=== PATIENT | male | born 1945 | race Two or more races ===

== ENCOUNTER 2020-05-13 13:36 | Inpatient (IN) | payer BC, OTHER ==
[~2020-05-13] VITALS: Ht 182.9 cm; Wt 86.2 kg
--- NOTE | 2020-05-13 14:00 | NUR ---
ELIZABETH [facility] TO ER BED 6. AWAKE, ALERT BUT CONSUED. TO ER BED 6. NOT IN RESP DISTRESS. PT IS A VENT AND TRACH DEPENDENT. BED BOUND. PT WAS BROUGHT IN FOR A DISLODGE GT PER REPORT FROM THE FACILITY. UPON ASSESSMENT, PTS GT WAS INPLACE, VERIFIED BY INTRODUCING AIR AND GURLING HEARD AND POSITIVE GASTRIC RESIDUAL RETURN UPON ASPIRATION. RESIDUAL WAS NOTED CLEAR, 10ML. NO NOTED BLEEDING, PERISTOME REDNESS NOR LEAK. AWAITING MD FOR EVAL.
--- NOTE | 2020-05-13 14:13 | NUR ---
RT Pt brought into ER trached on mechanical ventilation. Pt switched over to hospital vent with noted settings by transport RT. Vent is plugged into red outlet. No SOB or respiratory distress noted. Addendum: 05/13/20 at 1442 by JEANNETTE SOSA RT Amended: Links added.
[2020-05-13] MEDS ORDERED: DIATR MEGLU/DIATRIZOATE SODIUM 30 ML BOTTLE (GASTROGRAPHIN) ONE (14:16)
--- NOTE | 2020-05-13 14:28 | NUR ---
XRAY AT BEDSIDE. GASTROGRAFFIN GIVEN VIA GT PER MD ORDERED
[2020-05-13 14:57] LABS: BASOPHILS # (AUTO) 0.1 /CMM (0.0-0.2); BASOPHILS % (AUTO) 1.1 % (0.0-2.0); EOSINOPHILS % (AUTO) 4.2 % (0.0-6.0); HEMATOCRIT 30 % (39-51); LYMPHOCYTES # (AUTO) 1.8 /CMM (0.8-4.8); LYMPHOCYTES % (AUTO) 23.8 % (20.0-44.0); MEAN CORPUSCULAR HGB CONC 33 g/dl (31.0-36.0); MEAN CORPUSCULAR VOLUME 90 fL (80-96); MONOCYTES # (AUTO) 0.7 /CMM (0.1-1.30); MONOCYTES % (AUTO) 9.6 % (2.0-12.0); NEUTROPHILS # (AUTO) 4.7 /CMM (1.8-8.9); NEUTROPHILS % (AUTO) 61.3 % (43.0-81.0); PLATELET COUNT (AUTO) 276 /CMM (150-450); RED BLOOD CELL COUNT(AUTO) 3.38 MIL/uL (4.5-6.0); WHITE BLOOD COUNT (AUTO) 7.6 K/uL (4.3-11.0)
[2020-05-13 15:02] LABS: CALCIUM, SERUM 9.5 mg/dL (8.5-10.1); CREATININE 1.3 mg/dL (0.6-1.3)
[2020-05-13 15:13] LABS: POTASSIUM 2.8 mmol/L (3.5-5.1)
[2020-05-13] MEDS ORDERED: POTASSIUM CL. PREMIX PERIPHER. 200 ML ONE (16:45)
[2020-05-13] MEDS ORDERED: POTASSIUM CHLORIDE 20 MEQ POWDER PACKET ONE (16:46)
[2020-05-13] MEDS: POTASSIUM CL. PREMIX PERIPHER. 50 ML IV SCH ×4 (16:58→22:53)
[2020-05-13] MEDS ORDERED: POTASSIUM CHLORIDE 20 MEQ TAB.PRT.SR PO ONE (17:00)
[2020-05-13] MEDS ORDERED: IV NS 0.9% 1,000 ML IV ONE (17:00)
[2020-05-13] MEDS ORDERED: SIMV-46 GT (17:33)
[2020-05-13] MEDS ORDERED: INSU100V7 SQ (17:33)
[2020-05-13] MEDS ORDERED: LOSA25TA27 GT (17:33)
[2020-05-13] MEDS ORDERED: PANT40SU2 GT (17:33)
[2020-05-13] MEDS ORDERED: POLY17PO4 GT (17:33)
[2020-05-13] MEDS ORDERED: DOCU50LI GT (17:33)
[2020-05-13] MEDS ORDERED: BISA5TAB10 GT (17:33)
[2020-05-13] MEDS ORDERED: CARV3.122 GT (17:33)
[2020-05-13] MEDS ORDERED: ZINC1CAP2 GT (17:33)
[2020-05-13] MEDS ORDERED: ASPI-1169 GT (17:33)
[2020-05-13] MEDS ORDERED: FURO-144 GT (17:33)
[2020-05-13] MEDS ORDERED: APIX5TAB GT (17:33)
[2020-05-13] MEDS ORDERED: AMIO200T5 GT (17:33)
[2020-05-13] MEDS ORDERED: LEVE100S GT (17:33)
--- NOTE | 2020-05-13 17:37 | NUR ---
111-1 TELE. PRIMARY NURSE AWARE.
[2020-05-13] MEDS ORDERED: BISACODYL (5 MG) 5 MG TABLET.DR GT PRN (18:00)
--- NOTE | 2020-05-13 18:21 | NUR ---
REPORT GIVEN TO LILIANA RIOS FOR JOHN
[2020-05-13 19:00] VITALS: BP 132/64
--- NOTE | 2020-05-13 19:03 | NUR ---
pt transported to [facility] with emt aqnd rn at bedside with acls protocol. nad noted during transport.
[2020-05-13] MEDS ORDERED: DEXTROSE 50%-WATER 50 ML DISP.SYRIN IV PRN (20:00)
--- NOTE | 2020-05-13 20:00 | NUR ---
CARTON WAXING MACHINE OPERATOR NOTE ADMITTED PT FROM ER WITH THE DX OF HYPOKALEMIA AND GT MALFUNCTION, A/O X 1, NON VERBAL BUT ABLE TO USE FACIAL EXPRESSION. ON VENT/TRACH. TOLERATING SETTINGS WELL. NO DISTRESS OR DISCOMFORT NOTED. NO S/S OF PAIN. NOTED. SKIN ASSESSMENT DONE, PICTURES TAKEN AND PLACE THEM IN THE CHART. PT IS KEPT ON TOUCHING THE TRACH SITE. AND GT SITE. BILATERAL MITTENS ON. ABD BINDER ON. KCL 10 MEQ 50 ML/HR INFUSING WELL ON RFA # 20 G, NO S/S INFILTRATION NOTED. ON TELE MONITOR SR HR 76. BED BATH GIVEN. KEPT HIM DRY AND CLEAN. WOUND CONSULT TRIGGERED. ADMITTING ORDERS CHECKED AND CARRIED OUT. BILATERAL HEELS FLOATED ON PILLOW AND HEEL PROTECTORS APPLIED. SIDE RAILS UP X 3 AND CALL LIGHT WITHIN REACH. VSS CONTINUE TO MONITOR HIM.
[2020-05-13] MEDS ORDERED: SIMVASTATIN 20 MG TABLET GT SCH (22:00)
[2020-05-13] MEDS: DOCUSATE SODIUM LIQ 100 MG/10 ML UDC GT SCH (22:00)
[2020-05-13] MEDS: INSULIN GLARGINE, 100 UNIT/ML CARTRIDGE SQ SCH (22:00)
[2020-05-13] MEDS ORDERED: IV D5/0.45 NACL 1,000 ML IV PRN (23:00)
[2020-05-13] MEDS: BLOOD SUGAR DIAGNOSTIC 1 EACH STRIP IN SCH (23:10)
[2020-05-14] MEDS: BLOOD SUGAR DIAGNOSTIC 1 EACH STRIP IN SCH ×4 (06:11→23:55)
--- NOTE | 2020-05-14 06:45 | NUR ---
SHIPPER/RECEIVER NOTE PT IN BED AWAKE. BED BATH GIVEN. ALSO INCONTINENCE CARE GIVEN. NO DISTRESS OR DISCOMFORT NOTED. DENIES PAIN. TOLERATING VENT SETTINGS WELL, SUCTIONED HIM FREQUENTLY, THICK YELLOWISH GREENISH SECRETIONS NOTED. ON TELE SR/ST HR 104. REPOSITION HIM Q2H, KEPT HIM DRY AND CLEAN. ALL NEEDS ATTENDED. SIDE RAILS UP X 2 AND CALL LIGHT WITHIN REACH. VSS. WILL ENDORSE TO DAY SHIFT NURSE FOR CONTINUE TO CARE.
--- NOTE | 2020-05-14 07:30 | NUR ---
RN TELE1 PATIENT IN BED, NO S/S OF DISTRESS, A/O 1, TRACH VENT IN PLACE, O2 SAT 100%, SINUS TACHY, HR 100, INCONTINENT WITH CHUCKS IN PLACE, WOUNDS ON SACRUM, BILATERLA HEALS, L AND R ARM, AND PEELING SKIN, WILL MONTIOR FOR CHANGES AND GIVE WOUND CARE ORDERED, WOUND CARE CONSULT ORDERED, NPO WILL FOLLOW UP WITH MD, IV IN R FOREARM 20G RUNNING D5 1/2 NS AT 75ML/HR, BED LOWEST LOCKED POSITION, CALL LIGHT WITHIN REACH, SAFETY MEASURES IN PLACE, WILL CONTINUE TO MONITOR.
--- NOTE | 2020-05-14 07:47 | NUR ---
PT. RECEIVED ON VENT SUPPORT VIA TRACH WITH FOLLOWING PARAMETERS: SIMV 10, VT 600 ML, 40% FIO2, PEEP +5, PS 15. Addendum: 05/14/20 at 1702 by LIDIA HOLLINS RT Amended: Links added.
[2020-05-14 08:00] VITALS: BP 137/69
[2020-05-14] MEDS ORDERED: ASPIRIN 81 MG TAB.CHEW GT SCH (09:00)
[2020-05-14] MEDS: POLYETHYLENE GLYCOL 3350 17 GM POWD.PACK GT SCH ×2 (09:00→17:00)
[2020-05-14] MEDS ORDERED: FUROSEMIDE 40 MG TABLET GT SCH (09:00)
[2020-05-14] MEDS: LORAZEPAM INJ 2 MG/ML VIAL IV PRN ×2 (09:39→23:53)
[2020-05-14] MEDS: APIXABAN 5 MG TABLET GT SCH ×2 (09:41→17:50)
[2020-05-14] MEDS: PANTOPRAZOLE 40 MG/PACK PACK GT SCH (09:42)
[2020-05-14] MEDS: ZINC SULFATE 220 MG CAPSULE GT SCH (09:43)
[2020-05-14] MEDS: AMIODARONE HCL 200 MG TABLET GT SCH ×2 (09:43→17:00)
[2020-05-14] MEDS: CARVEDILOL 3.125 MG TABLET GT SCH ×2 (09:44→17:00)
[2020-05-14] MEDS: LOSARTAN POTASSIUM 25 MG TABLET GT SCH (09:45)
[2020-05-14] MEDS: LEVETIRACETAM SOL (5 ML) 100 MG/ML UDC GT SCH ×2 (09:48→17:49)
--- NOTE | 2020-05-14 09:53 | NUR ---
WOUND CARE CONSULT: REVIEWED CHART, NURSING DOCUMENTATION AND PHOTOS WHICH INDICATE SACRAL SCARRING, WOUNDS TO LOWER EXTREMITIES, REDNESS TO GROIN AREAS, PRESENT ON ADMISSION. RECOMMENDATIONS MADE FOR SKIN PROTECTION. DISCUSSED WITH NURSING STAFF. RECOMMEND DPM CONSULT. DR TIPTON NOTIFIED OF CONSULT REQUEST. ISOFLEX LOW AIRLOSS BED TO BE PLACED PER HELPER/DRIVER. IN AGREEMENT WITH PLAN OF CARE.
[2020-05-14] MEDS ORDERED: Z GUARD REMEDY 2 OZ OINT TP PRN (10:00)
[2020-05-14] MEDS: Z GUARD REMEDY 2 OZ OINT TP SCH (11:27)
[2020-05-14 12:40] LABS: BASOPHILS # (AUTO) 0.1 /CMM (0.0-0.2); BASOPHILS % (AUTO) 0.9 % (0.0-2.0); EOSINOPHILS % (AUTO) 4.7 % (0.0-6.0); HEMATOCRIT 28 % (39-51); HEMOGLOBIN 9.2 g/dL (13.5-17.5); LYMPHOCYTES # (AUTO) 1.7 /CMM (0.8-4.8); MEAN CORPUSCULAR HGB CONC 33 g/dl (31.0-36.0); MEAN CORPUSCULAR VOLUME 91 fL (80-96); MONOCYTES # (AUTO) 0.8 /CMM (0.1-1.30); MONOCYTES % (AUTO) 10.4 % (2.0-12.0); PLATELET COUNT (AUTO) 241 /CMM (150-450); RED BLOOD CELL COUNT(AUTO) 3.08 MIL/uL (4.5-6.0); WHITE BLOOD COUNT (AUTO) 7.9 K/uL (4.3-11.0)
[2020-05-14 13:06] LABS: CALCIUM, SERUM 8.9 mg/dL (8.5-10.1); CREATININE 1.1 mg/dL (0.6-1.3); POTASSIUM 3.4 mmol/L (3.5-5.1)
[2020-05-14 13:12] LABS: ALBUMIN 2.5 g/dL (3.4-5.0); BILIRUBIN,TOTAL 0.8 mg/dL (0.2-1.0); MAGNESIUM 2.2 mg/dL (1.8-2.4); PHOSPHORUS 4.3 mg/dL (2.5-4.9); TOTAL PROTEIN, SERUM 7.2 g/dL (6.4-8.2)
[2020-05-14 13:57] LABS: THYROID STIMULATING HORMONE 1.417 uIU/mL (0.358-3.74)
[2020-05-14] MEDS: AMMONIUM LACTATE 227 GM BOTTLE TP SCH (17:49)
[2020-05-14] MEDS: CLOTRIMAZOLE 1% 15 GM TUBE TP SCH (17:52)
--- NOTE | 2020-05-14 19:20 | NUR ---
RN OPENING NOTE RECEIVED PATIENT IN BED ALERT ORIENTED X2 VERBALLY RESPONSIVE NO TELE MONITORING ON ROOM AIR O2:98%,ANXIOUS TRYING TO GET OUT OF THE BED,CONTINENT TO BOWEL AND BLADDER ON IV HYDRATION NS 0.9 CC/HR IV SITE IS ON LEFT FOREARM,INTACT PATENT FLUSHED,SAFETY MEASURE IMPLEMENT,BED IS IN LOW POSITION AND LOCKED BED ALARM IS ON,CALL LIGHT WITHIN REACH,CONTINUE TO MONITOR. Addendum: 05/15/20 at 0146 by JUAN DOHERTY RN PLEASE REGARD THIS NOTE WRONG DOCUMENTATION.
--- NOTE | 2020-05-14 19:21 | NUR ---
RN OPENING NOTE RECEIVED PATIENT IN BED ALERT ORIENTED 1 NONVERBAL ON MECHANICAL VENT INTUBATED,ON TELE MONITORING,O2:100% IV SITE IS ON RIGHT FOREARM INTACT PATENT,INCONTINENT TO BOWEL/BLADDER HEAD OF BED ELEVATED,REPORTED BY PERVIOUS NURSE D/C IV HYDRATION AND START G-TUBE FEEDING TWOCAL.HN START WITH 25CC/HR AND THAN GOAL IS 50CC/HR,SAFETY MEASURE IMPLEMENT,CONTINUE TO MONITOR.
--- NOTE | 2020-05-14 20:01 | NUR ---
RN TELE1 PATIENT IN BED, ON TRACH/VENT, O2 SAT 100%, NO RESPIRATORY DISTRESS NOTED, A.OX1, TELE MONITOR IN PLACE SINUS RHYTHM, ONE BOWEL MOVEMENT TODAY, TREATED WOUNDS PER ORDERS, BED ALARM ON, BED IN LOWEST LOCKED POSITION, CALL LIGHT WITHIN REACH, IV IN R WRIST 20G, RUNNING D5 1/2NS AT 75ML/HR, TOLERATING WELL, URINE WAS CLEAR YELLOW DURING THE DAY, RIGHT AT THE END OF SHIFT REDNESS WAS NOTED IN THE URINE, CALL DR LAWS, ORDERED URINE ANALYSIS WITH IN AND OUT CATHETERIZATION TO OBTAIN SPECIMEN, ENDORSED TO JUAN THE BUCKLER AND LACER RN. MITS ON HANDS AND FOOT DROP BOOTS IN PLACE, MONITORED Q15, SAFETY MEASURES IN PLACE.
--- NOTE | 2020-05-14 20:20 | NUR ---
RT pt received on mechanical vent with current settings. trached with shiley 8 xlt. trach secure. vent plugged in to red outlet, ambu bag plugged in to red outlet. minimal secretions suctioned via trach. no sob, no resp distress. will continue to monitor throughout shift
--- NOTE | 2020-05-14 21:00 | NUR ---
RN NOTE PATIENT PULLED OUT THE IV LINE,SHE REFUSED TO HAVE IV ACCESS,EXPLAINED BENEFITS SHE STILL REFUSES,WILL TRY LATER,CONTINUE TO MONITOR. Addendum: 05/15/20 at 0435 by JUAN DOHERTY RN PLEASE REGARD THIS WRONG DOCUMENTATION.
[2020-05-14] MEDS: INSULIN GLARGINE, 100 UNIT/ML CARTRIDGE SQ SCH (22:00)
[2020-05-14] MEDS: DOCUSATE SODIUM LIQ 100 MG/10 ML UDC GT SCH (22:00)
--- NOTE | 2020-05-14 22:26 | NUR ---
RN NOTE INSULIN LANTUS 20 UNIT NOT ADMINISTERED DUE TO LOW BLOOD SUGAR BS 80,ALSO COLACE NOT GIVEN DUE TO LOOSE STOOL,CONTINUE TO MONITOR.
[2020-05-14] MEDS: INSULIN REGULAR, HUMAN 100 UNIT/ML 3 ML VIAL SQ PRN (23:55)
--- NOTE | 2020-05-15 01:58 | NUR ---
RN NOTE RECEIVED ORDER FOR URINE ANALYSIS,AND IN AND OUT CATHETER FOR COLLECT URINE NOTED AND CARRIED OUT.
[2020-05-15] MEDS ORDERED: TWOCAL HN 1,000 ML LIQUID GT PRN ×2 (02:00→08:30)
[2020-05-15] MEDS: LORAZEPAM INJ 2 MG/ML VIAL IV PRN ×2 (04:21→10:06)
[2020-05-15 05:21] LABS: BILIRUBIN,URINE NEGATIVE (NEGATIVE); BLOOD, URINE LARGE Ery/uL (NEGATIVE); COLOR,URINE RED (YELLOW); LEUKOCYTE ESTERASE ,URINE MODERATE (NEGATIVE); NITRITE, URINE POSITIVE (NEGATIVE); PROTEIN,URINE >=300 mg/dl (NEGATIVE); UGLUCOSE NEGATIVE (NEGATIVE)
[2020-05-15 05:30] LABS: BACTERIA,URINE 3+ /HPF (None Seen); RBC,URINE TOO NUMEROUS TO COUN /HPF (0-2); SQUAMOUS EPITHELIAL CELL,UR None Seen /HPF (None Seen); WBC,URINE TOO NUMEROUS TO COUN /HPF (0-3)
[2020-05-15] MEDS: BLOOD SUGAR DIAGNOSTIC 1 EACH STRIP IN SCH ×4 (05:41→23:37)
[2020-05-15] MEDS: INSULIN REGULAR, HUMAN 100 UNIT/ML 3 ML VIAL SQ PRN ×2 (05:42→17:18)
--- NOTE | 2020-05-15 05:43 | NUR ---
RN NOTE BS IS 112,NOT REQUIRED INSULIN,PER SLIDING SCALE CONTINUE TO MONITOR.
[2020-05-15 06:31] LABS: BASOPHILS # (AUTO) 0.1 /CMM (0.0-0.2); BASOPHILS % (AUTO) 0.9 % (0.0-2.0); EOSINOPHILS % (AUTO) 4.8 % (0.0-6.0); HEMATOCRIT 25 % (39-51); HEMOGLOBIN 8.4 g/dL (13.5-17.5); LYMPHOCYTES # (AUTO) 1.6 /CMM (0.8-4.8); LYMPHOCYTES % (AUTO) 18.8 % (20.0-44.0); MEAN CORPUSCULAR HGB CONC 33 g/dl (31.0-36.0); MEAN CORPUSCULAR VOLUME 90 fL (80-96); MONOCYTES # (AUTO) 0.9 /CMM (0.1-1.30); MONOCYTES % (AUTO) 10.4 % (2.0-12.0); NEUTROPHILS # (AUTO) 5.6 /CMM (1.8-8.9); NEUTROPHILS % (AUTO) 65.1 % (43.0-81.0); PLATELET COUNT (AUTO) 224 /CMM (150-450); RED BLOOD CELL COUNT(AUTO) 2.83 MIL/uL (4.5-6.0); WHITE BLOOD COUNT (AUTO) 8.7 K/uL (4.3-11.0)
--- NOTE | 2020-05-15 07:20 | NUR ---
PT AWAKE IN BED, NON VERBAL, DOES NOT FOLLOW COMMANDS. VENT SETTINGS ORDERED. TOLERATING WELL WITH NO SIGNS OF RESPIRATORY DISTRESS. SKIN WARM FLUSHED. SR 80S ON TELE. MITTENS ON BILATERAL UPPER EXTREMITIES ORDERED PT ATTEMPTING TO REMOVE VENTILATOR TUBING AND HITTING STAFF WITH ARMS. MONITORED CIRCULATION AND RESPONSE TO RESTRAINTS Q1H. ATTEMPTED DISTRACTION AND INCREASED MONITORING AND INCREASED SUPERVISION AND DECREASING STIMULI WITH NO SUCCESS. MD AWARE. GT FEEDING ON ORDERED. NO RESIDUAL. AUSCULTATED FOR PLACEMENT. R FA IV FLUSHED AND PATENT. ALL HOSPITAL POLICY SAFETY PRECAUTIONS IMPLEMENTED. HOB ELEVATED 30 DEGREES AND PT TURNED Q2H.
--- NOTE | 2020-05-15 07:32 | NUR ---
RN CLOSING NOTE PATIENT REMAINS ALERT ORIENTED X1 NONVERBAL OPEN EYES, TELE MONITORING,ON MECHANICAL VENT,INTUBATED,O2:100%,ON G-TUBE FEEDING TWO SAMANTHA HN,PLACEMENT CHECKED,IN PLACE,NO RESIDUAL,HEAD OF BED ELEVATED,INCONTINENT BOWEL AND BLADDER,IV SITE IS ON RIGHT FOREARM INTACT PATIENT,ALL DUE MEDS GIVEN MD ORDERED,KEPT CLEAN AND DRY ALL THE TIME,KEPT COMFORTABLE,REPOSITION EVERY 2 HOURS,ALL NEEDS MET.ENDORSE NEXT COMING SHIFT FOR CONTINUATION OF CARE.
[2020-05-15 08:00] VITALS: BP 95/48
[2020-05-15 08:48] LABS: ALBUMIN 2.4 g/dL (3.4-5.0); BILIRUBIN,TOTAL 0.7 mg/dL (0.2-1.0); CALCIUM, SERUM 8.7 mg/dL (8.5-10.1); CREATININE 1.2 mg/dL (0.6-1.3); MAGNESIUM 2.2 mg/dL (1.8-2.4); PHOSPHORUS 4.3 mg/dL (2.5-4.9); POTASSIUM 3.2 mmol/L (3.5-5.1); TOTAL PROTEIN, SERUM 6.8 g/dL (6.4-8.2)
[2020-05-15] MEDS: AMIODARONE HCL 200 MG TABLET GT SCH ×2 (09:00→16:51)
[2020-05-15] MEDS: APIXABAN 5 MG TABLET GT SCH ×2 (09:00→16:48)
[2020-05-15] MEDS: LOSARTAN POTASSIUM 25 MG TABLET GT SCH (09:00)
[2020-05-15] MEDS: CARVEDILOL 3.125 MG TABLET GT SCH ×2 (09:00→16:51)
--- NOTE | 2020-05-15 09:00 | NUR ---
NOTIFIED OF LOW BP. 95/48. CHECKED TWICE. RECEIVED OK TO HOLD THE ORDERED AMIODARONE, CARVEDILOL, LOSARTAN, AND ELIQUIS PT EXPERIENCED HEMATURIA LAST NIGHT PER REPORT FROM NIGHT RN. WILL CONTINUE TO MONITOR VS AND S/S OF BLEEDING.
[2020-05-15] MEDS: POLYETHYLENE GLYCOL 3350 17 GM POWD.PACK GT SCH ×2 (09:37→16:50)
[2020-05-15] MEDS: LEVETIRACETAM SOL (5 ML) 100 MG/ML UDC GT SCH ×2 (09:37→16:50)
[2020-05-15] MEDS: PANTOPRAZOLE 40 MG/PACK PACK GT SCH (09:39)
[2020-05-15] MEDS: ZINC SULFATE 220 MG CAPSULE GT SCH (09:39)
[2020-05-15] MEDS: AMMONIUM LACTATE 227 GM BOTTLE TP SCH ×2 (09:40→16:52)
[2020-05-15] MEDS: CLOTRIMAZOLE 1% 15 GM TUBE TP SCH ×2 (09:41→16:52)
[2020-05-15] MEDS: Z GUARD REMEDY 2 OZ OINT TP SCH (09:41)
[2020-05-15] MEDS ORDERED: POTASSIUM CHLORIDE 20 MEQ POWDER PACKET GT SCH (10:00)
[2020-05-15] MEDS ORDERED: QUETIAPINE FUMARATE 25 MG TABLET PO ONE (11:00)
[2020-05-15] MEDS ORDERED: PIPERACILLIN /TAZOBACTAM 3.375 G in IV D5W 50 ML IV SCH (11:00)
[2020-05-15 12:00] VITALS: BP 97/43
[2020-05-15] MEDS ORDERED: PIPERACILLIN /TAZOBACTAM 3.375 G in IV D5W 50 ML IV ONE (12:00)
[2020-05-15] MEDS: QUETIAPINE FUMARATE 25 MG TABLET PO SCH ×2 (13:00→16:51)
[2020-05-15 16:00] VITALS: BP 104/51
[2020-05-15] MEDS ORDERED: PNEUMOCOCCAL 23-VAL P-SAC VAC 0.5 ML VIAL SQ ONE (17:00)
--- NOTE | 2020-05-15 19:51 | NUR ---
PT ASLEEP IN BED, NON VERBAL, DOES NOT FOLLOW COMMANDS. VENT SETTINGS ORDERED. TOLERATING WELL WITH NO SIGNS OF RESPIRATORY DISTRESS. SKIN WARM FLUSHED. SR 80S ON TELE. MITTENS ON BILATERAL UPPER EXTREMITIES ORDERED PT ATTEMPTING TO REMOVE VENTILATOR TUBING AND HITTING STAFF WITH ARMS. MONITORED CIRCULATION AND RESPONSE TO RESTRAINTS Q1H. ATTEMPTED DISTRACTION AND INCREASED MONITORING AND INCREASED SUPERVISION AND DECREASING STIMULI WITH NO SUCCESS. MD AWARE. GT FEEDING ON ORDERED. NO RESIDUAL. AUSCULTATED FOR PLACEMENT. R FA IV FLUSHED AND PATENT. ALL HOSPITAL POLICY SAFETY PRECAUTIONS IMPLEMENTED. HOB ELEVATED 30 DEGREES AND PT TURNED Q2H AND ELEVATED EXTREMITIES. MONITORED RESP STATUS AND BREATHING, MONITORED LABS, MONITORED VS, MONITORED RESPONSE TO TREATMENTS AND GT FEEDING. REPORTED TO MD NEEDED. ENDORSED TO PM RN.
[2020-05-15 20:00] VITALS: BP 80/46
[2020-05-15] MEDS: PIPERACILLIN /TAZOBACTAM 3.375 G in IV D5W 100 ML IV SCH (20:20)
--- NOTE | 2020-05-15 20:30 | NUR ---
electrode turner and finisher note Patient noted with bp of 80/46, hr 64,16, 100%, temp 98.6. Dr. Scott made aware. Per MD patient has chf and bolus may not be started. Md ordered to hold bp meds if sbp <110. Md notified bp meds are only in the morning and asked for advise regarding hypotension. Per md, recheck bp.
[2020-05-15 20:45] VITALS: BP 88/40
--- NOTE | 2020-05-15 20:45 | NUR ---
pattern lease inspector note Elevated patients legs and slightly lowered head. Rechecked bp manually ,, Bp 88/40. 98.7, 66, 18. Breathing even and unlabored with no sob or acute distress noted.
[2020-05-15 22:50] VITALS: BP 100/50
--- NOTE | 2020-05-15 22:50 | NUR ---
pharmacist intern note VS rechecked 100/50,18, 98.7 70 100%. Pt in bed, eyes closed noted attempting to remove mittens. Breathing even and unlabored with no sob or acute distress noted. Will continue to monitor.
[2020-05-15] MEDS: DOCUSATE SODIUM LIQ 100 MG/10 ML UDC GT SCH (23:35)
[2020-05-15] MEDS: INSULIN GLARGINE, 100 UNIT/ML CARTRIDGE SQ SCH (23:36)
[2020-05-16] VITALS (7 sets, daily range): BP systolic 86–118; BP diastolic 40–64
[2020-05-16] MEDS: PIPERACILLIN /TAZOBACTAM 3.375 G in IV D5W 100 ML IV SCH ×3 (04:05→21:31)
[2020-05-16] MEDS: BLOOD SUGAR DIAGNOSTIC 1 EACH STRIP IN SCH ×4 (05:19→23:49)
[2020-05-16 06:44] LABS: BASOPHILS # (AUTO) 0.1 /CMM (0.0-0.2); BASOPHILS % (AUTO) 0.8 % (0.0-2.0); EOSINOPHILS % (AUTO) 4.2 % (0.0-6.0); HEMATOCRIT 25 % (39-51); HEMOGLOBIN 8.3 g/dL (13.5-17.5); LYMPHOCYTES # (AUTO) 1.6 /CMM (0.8-4.8); LYMPHOCYTES % (AUTO) 16.8 % (20.0-44.0); MEAN CORPUSCULAR HGB CONC 33 g/dl (31.0-36.0); MEAN CORPUSCULAR VOLUME 91 fL (80-96); MONOCYTES % (AUTO) 10.4 % (2.0-12.0); NEUTROPHILS # (AUTO) 6.3 /CMM (1.8-8.9); NEUTROPHILS % (AUTO) 67.8 % (43.0-81.0); PLATELET COUNT (AUTO) 206 /CMM (150-450); RED BLOOD CELL COUNT(AUTO) 2.78 MIL/uL (4.5-6.0); WHITE BLOOD COUNT (AUTO) 9.3 K/uL (4.3-11.0)
[2020-05-16 06:53] LABS: ALANINE AMINOTRANSFERASE 12 U/L (12-78); ALBUMIN 2.3 g/dL (3.4-5.0); ALKALINE PHOSPHATASE 95 U/L (46-116); ASPARTATE AMINOTRANSFERASE 16 U/L (15-37); BILIRUBIN,TOTAL 0.5 mg/dL (0.2-1.0); CALCIUM, SERUM 8.8 mg/dL (8.5-10.1); CARBON DIOXIDE 31 mmol/L (21-32); CHLORIDE 107 mmol/L (98-107); GLUCOSE 165 mg/dL (74-106); MAGNESIUM 2.4 mg/dL (1.8-2.4); PHOSPHORUS 3.7 mg/dL (2.5-4.9); SODIUM SERUM 146 mmol/L (136-145); TOTAL PROTEIN, SERUM 6.8 g/dL (6.4-8.2); UREA NITROGEN, BLOOD 32 mg/dL (7-18)
[2020-05-16 07:01] LABS: IRON, SERUM 14 ug/dl (50-175); TOTAL IRON BINDING CAPACITY 177 ug/dl (250-450)
[2020-05-16 07:12] LABS: FERRITIN 145 ng/mL (8-388)
--- NOTE | 2020-05-16 07:30 | NUR ---
RN OPENING NOTES RECEIVED PATIENT IN BED, A/OX1, [facility] , TOLERATING SETTINGS WELL, NO SOB, NO DISTRESS NOTED, IV LINE ON R WRIST NOTED , INTACT AND PATENT, G-TUBE NOTED, RUNNING FEEDING @50CC/HR TOLERATING WELL, NO RESIDUAL NOTED, SAFETY MEASURES IN PLACE, BED IS LOCKED, IN LOWEST POSITION, WILL CONT TO MONITOR
--- NOTE | 2020-05-16 07:39 | NUR ---
Supervisor Pumping Station note pt in bed. asleep but easily arousable. breathing even and unlabored with no sob or acute distress noted on mechanical vent. Vent settings tolerating well. No s/s of pain and discomfort.Right hand IV patent and intact. Iv fluids infusing well. Kept clean and dry. All needs rendered . Repositioned q2h. Call light within reach. Bed in lowest position. Endorsed to [place] for continuity of care.
--- NOTE | 2020-05-16 08:00 | NUR ---
Patient BP is dcreseees, informed Dr Joe, ordered IV bolus will recheck and monitor
[2020-05-16] MEDS ORDERED: IV NS 0.9% 500 ML IV ONE (09:00)
[2020-05-16] MEDS ORDERED: IV D5W 1,000 ML IV SCH (09:00)
[2020-05-16] MEDS: AMIODARONE HCL 200 MG TABLET GT SCH ×2 (09:00→17:00)
[2020-05-16] MEDS: CARVEDILOL 3.125 MG TABLET GT SCH ×2 (09:00→17:00)
[2020-05-16] MEDS ORDERED: IV D5W 1,000 ML IV PRN (09:00)
--- NOTE | 2020-05-16 09:15 | NUR ---
Tolerated IV bolus well, BP is improved 94/62, HR 68
[2020-05-16] MEDS: PANTOPRAZOLE 40 MG/PACK PACK GT SCH (09:16)
[2020-05-16] MEDS: ZINC SULFATE 220 MG CAPSULE GT SCH (09:16)
[2020-05-16] MEDS: QUETIAPINE FUMARATE 25 MG TABLET PO SCH ×2 (09:17→18:01)
[2020-05-16] MEDS: POLYETHYLENE GLYCOL 3350 17 GM POWD.PACK GT SCH ×2 (09:18→17:00)
[2020-05-16] MEDS: LEVETIRACETAM SOL (5 ML) 100 MG/ML UDC GT SCH ×2 (09:18→18:01)
[2020-05-16] MEDS: APIXABAN 5 MG TABLET GT SCH ×2 (09:23→18:02)
[2020-05-16] MEDS: CLOTRIMAZOLE 1% 15 GM TUBE TP SCH ×2 (09:55→17:54)
[2020-05-16] MEDS: AMMONIUM LACTATE 227 GM BOTTLE TP SCH ×2 (09:55→17:54)
[2020-05-16] MEDS: Z GUARD REMEDY 2 OZ OINT TP SCH (09:56)
--- NOTE | 2020-05-16 16:30 | NUR ---
Pulled out trach with mittens on, reinserted trach back, called RT, provided reorientation for patient and education about mech vent
--- NOTE | 2020-05-16 17:54 | NUR ---
excessive diarrhea x2, will hold miralax, unable to collect stool
--- NOTE | 2020-05-16 18:00 | NUR ---
REMOVED MIETENS, REMOVED VENT TUBE, AGITATED, HITTING ,CALLED MD JAYESH NOTIFIED
--- NOTE | 2020-05-16 18:15 | NUR ---
REMOVED AIRWAY TUBE AGAIN WITH MITTENS ON, RT NOTIFIED, MD NOTIFIED
--- NOTE | 2020-05-16 19:50 | NUR ---
PATIENT REMAINS IN BED, TOLERATING SETTINGS WELL, REPORT GIVEN TO PM SHIFT RN FOR JOHN
[2020-05-16] MEDS: DOCUSATE SODIUM LIQ 100 MG/10 ML UDC GT SCH (21:32)
[2020-05-16] MEDS: INSULIN GLARGINE, 100 UNIT/ML CARTRIDGE SQ SCH (22:00)
[2020-05-16] MEDS: INSULIN REGULAR, HUMAN 100 UNIT/ML 3 ML VIAL SQ PRN (23:49)
[2020-05-17] VITALS: BP 134/91
--- NOTE | 2020-05-17 00:17 | NUR ---
RT NOTE Pt rec'd trached on [facility] vent on SIMV mode settings as charted. Pt shows no signs of resp distress or sob. Trach is patent and secured. pt sx'd for thick large amt of yellow secretions Alarms are set and audible. ambu bag and emergency spare trach bedside. Vent plugged into red outlet. Will continue to monitor closely. Addendum: 05/17/20 at 0017 by LIEN CORNELL RT Amended: Links added.
[2020-05-17 04:00] VITALS: BP 164/81
[2020-05-17] MEDS: PIPERACILLIN /TAZOBACTAM 3.375 G in IV D5W 100 ML IV SCH ×3 (04:21→20:02)
--- NOTE | 2020-05-17 04:44 | NUR ---
RN notes Patient in bed, with bilateral wrist restraints in place, removed every two hours for hygiene, circulation and repositioning. Alert, able to follow simple comands. Uses mouth words. Patient is very restless, trying to get out of bed and removing tubings. No physical manifestation of pain or discomfort. Vital signs wnl. Kept clean and dry. Will endorse to next shift for continuity of care.
[2020-05-17] MEDS: BLOOD SUGAR DIAGNOSTIC 1 EACH STRIP IN SCH ×4 (06:44→23:58)
[2020-05-17] MEDS: INSULIN REGULAR, HUMAN 100 UNIT/ML 3 ML VIAL SQ PRN (06:45)
--- NOTE | 2020-05-17 07:35 | NUR ---
ENROBING MACHINE FEEDER NOTES PATIENT RECEIVED IN BED, AWAKEN BY LIGHT TOUCH, ABLE TO OPEN EYES. PATIENT UNCOOPERATIVE WHEN ASSESSMENT BEING DONE. BILATERAL SOFT WRIST RESTRAINTS IN PLACE, WITH ADEQUATE SKIN CIRCULATION NOTED, 2 FINGER SPACE, AND Q 15 MIN VISUAL CHECKS DONE. ON MECHANICAL VENT, TOLERATING SETTING WELL, WITH NO SIGNS OF RESPIRATORY DISTRESS, WITH NON-LABORED BREATHING, AND NO APPARENT DISTRESS NOTED AT THIS TIME. IV ACCESS INTACT AND PATENT. G-TUBE SITE INTACT AND PATENT, FLUSHED, AND NO RESIDUAL NOTED AT THIS TIME, TUBE FEEDING CURRENTLY INFUSING AT 25ml/hr. PATIENT PRESENTS WITH NO PAIN AND DISCOMFORT AT THIS TIME. SAFETY PRECAUTIONS IMPLEMENTED WITH THE BED IN THE LOWEST POSITION, BILATERAL SIDE RAILS UP, BED LOCKED, BED ALARM ON AND CALL LIGHT WITHIN EASY REACH. WILL CONTINUE TO MONITOR PATIENT.
[2020-05-17 08:00] VITALS: BP 101/53
[2020-05-17] MEDS: QUETIAPINE FUMARATE 25 MG TABLET PO SCH ×2 (08:40→17:03)
[2020-05-17] MEDS: ZINC SULFATE 220 MG CAPSULE GT SCH (08:40)
[2020-05-17] MEDS: PANTOPRAZOLE 40 MG/PACK PACK GT SCH (08:40)
[2020-05-17] MEDS: LEVETIRACETAM SOL (5 ML) 100 MG/ML UDC GT SCH ×2 (08:40→17:03)
[2020-05-17] MEDS: POLYETHYLENE GLYCOL 3350 17 GM POWD.PACK GT SCH ×2 (08:40→17:03)
[2020-05-17] MEDS: CARVEDILOL 3.125 MG TABLET GT SCH ×2 (08:41→17:18)
[2020-05-17] MEDS: AMIODARONE HCL 200 MG TABLET GT SCH ×2 (08:41→17:18)
[2020-05-17] MEDS: APIXABAN 5 MG TABLET GT SCH ×2 (08:42→17:00)
[2020-05-17] MEDS: AMMONIUM LACTATE 227 GM BOTTLE TP SCH ×2 (09:03→17:19)
[2020-05-17] MEDS: CLOTRIMAZOLE 1% 15 GM TUBE TP SCH ×2 (09:03→17:19)
[2020-05-17] MEDS: Z GUARD REMEDY 2 OZ OINT TP SCH (09:04)
[2020-05-17] MEDS ORDERED: QUET25TA PO (11:36)
[2020-05-17] MEDS ORDERED: PIPE3.379 IV (11:36)
[2020-05-17 12:00] VITALS: BP 119/73
[2020-05-17 15:29] LABS: BASOPHILS # (AUTO) 0.3 /CMM (0.0-0.2); BASOPHILS % (AUTO) 1.3 % (0.0-2.0); EOSINOPHILS % (AUTO) 4.5 % (0.0-6.0); HEMATOCRIT 32 % (39-51); HEMOGLOBIN 10.3 g/dL (13.5-17.5); LYMPHOCYTES # (AUTO) 3.6 /CMM (0.8-4.8); LYMPHOCYTES % (AUTO) 18.4 % (20.0-44.0); MEAN CORPUSCULAR HGB CONC 32 g/dl (31.0-36.0); MEAN CORPUSCULAR VOLUME 93 fL (80-96); MONOCYTES # (AUTO) 2.1 /CMM (0.1-1.30); MONOCYTES % (AUTO) 10.5 % (2.0-12.0); NEUTROPHILS # (AUTO) 12.8 /CMM (1.8-8.9); NEUTROPHILS % (AUTO) 65.3 % (43.0-81.0); PLATELET COUNT (AUTO) 277 /CMM (150-450); RED BLOOD CELL COUNT(AUTO) 3.48 MIL/uL (4.5-6.0); WHITE BLOOD COUNT (AUTO) 19.7 K/uL (4.3-11.0)
[2020-05-17 16:00] VITALS: BP 127/62
--- NOTE | 2020-05-17 16:30 | NUR ---
WOOD AND HARDWARE OUTFITTER NOTES PATIENT HAS BLOOD TINGED URINE, INFORMED HOSPITALIST KAM FRITZ DNP ABOUT PATIENT CHANGE IN URINE. ALSO INFORMED PATIENT'S WBC OF 19.7. NO NEW ORDERS AT THIS TIME. NOTIFIED ABOUT ELIQUIS DUE AT 1700, OKAY TO HOLD DOSE. WILL CONTINUE TO MONITOR.
[2020-05-17 16:33] LABS: ALANINE AMINOTRANSFERASE 9 U/L (12-78); ALBUMIN 2.5 g/dL (3.4-5.0); ALKALINE PHOSPHATASE 98 U/L (46-116); ASPARTATE AMINOTRANSFERASE 16 U/L (15-37); BILIRUBIN,TOTAL 0.6 mg/dL (0.2-1.0); CARBON DIOXIDE 29 mmol/L (21-32); CHLORIDE 104 mmol/L (98-107); GLUCOSE 114 mg/dL (74-106); MAGNESIUM 2.3 mg/dL (1.8-2.4); PHOSPHORUS 3.6 mg/dL (2.5-4.9); POTASSIUM 4.2 mmol/L (3.5-5.1); SODIUM SERUM 143 mmol/L (136-145); UREA NITROGEN, BLOOD 20 mg/dL (7-18)
--- NOTE | 2020-05-17 16:34 | NUR ---
MANAGER ASSET MANAGEMENT NOTES CHANGE IN CONDITION WBC 19.7. BLOOD TINGE URINE NOTED. DR. KAM FRITZ AWARE. HOLD DC ORDERS. HOLD ELIQUIS.
[2020-05-17 16:57] LABS: TOTAL PROTEIN, SERUM 7.9 g/dL (6.4-8.2)
--- NOTE | 2020-05-17 18:29 | NUR ---
INDIAN BLANKET WEAVER NOTES PATIENT IN BED,SLEEPING EASILY AWAKEN BY NAME AND LIGHT TOUCH, ABLE TO OPEN EYES AND MOUTH WORDS, K[place]AKH SPEAKING. BILATERAL SOFT WRIST RESTRAINTS IN PLACE, WITH ADEQUATE SKIN CIRCULATION NOTED, 2 FINGER SPACE, AND Q 15 MIN VISUAL CHECKS DONE. ON MECHANICAL VENT, TOLERATING SETTING WELL, WITH NO SIGNS OF RESPIRATORY DISTRESS, WITH NON-LABORED BREATHING, AND NO APPARENT DISTRESS NOTED AT THIS TIME, SPO2 AT 100%. IV ACCESS INTACT AND PATENT. G-TUBE SITE INTACT AND PATENT, FLUSHED, AND NO RESIDUAL NOTED AT THIS TIME, TUBE FEEDING CURRENTLY INFUSING AT 35ml/hr. PATIENT PRESENTS WITH NO PAIN AND DISCOMFORT AT THIS TIME. MET ALL OF PATIENT'S NEEDS. SAFETY PRECAUTIONS IMPLEMENTED WITH THE BED IN THE LOWEST POSITION, BILATERAL SIDE RAILS UP, BED LOCKED, BED ALARM ON AND CALL LIGHT WITHIN EASY REACH. WILL ENDORSE PLAN OF CARE TO UPCOMING RN.
[2020-05-17 20:00] VITALS: BP 122/66
[2020-05-17 20:25] LABS: BILIRUBIN,URINE SMALL (NEGATIVE); BLOOD, URINE LARGE Ery/uL (NEGATIVE); COLOR,URINE RED (YELLOW); LEUKOCYTE ESTERASE ,URINE MODERATE (NEGATIVE); NITRITE, URINE NEGATIVE (NEGATIVE); PROTEIN,URINE 100 mg/dl (NEGATIVE); UGLUCOSE NEGATIVE (NEGATIVE)
[2020-05-17 20:34] LABS: BACTERIA,URINE 1+ /HPF (None Seen); RBC,URINE TOO NUMEROUS TO COUN /HPF (0-2); SQUAMOUS EPITHELIAL CELL,UR Few /HPF (None Seen); WBC,URINE 51-80 /HPF (0-3)
--- NOTE | 2020-05-17 20:36 | NUR ---
TELE-1/CADMIUM PLATER PT DISLODGED RIGHT HAND IV. NEW IV PLACED BY MIKA BARLOW RN LEFT WRIST #20 PT TOLERATED WELL.
[2020-05-17 20:52] LABS: CREATININE, URINE 81.3 MG/DL (30.0-125.0); URINE TOTAL PROTEIN 218.2 mg/dL (0-11.9)
[2020-05-17 21:17] LABS: EOSINOPHIL,URINE Rare
[2020-05-17] MEDS: DOCUSATE SODIUM LIQ 100 MG/10 ML UDC GT SCH (22:00)
[2020-05-17] MEDS: INSULIN GLARGINE, 100 UNIT/ML CARTRIDGE SQ SCH (22:00)
--- NOTE | 2020-05-17 22:00 | NUR ---
MED NOTE: LISA HELD BLOOD SUGAR 114
[2020-05-18] VITALS: BP 149/79
[2020-05-18 04:00] VITALS: BP 125/34
[2020-05-18] MEDS: PIPERACILLIN /TAZOBACTAM 3.375 G in IV D5W 100 ML IV SCH ×2 (04:34→13:09)
[2020-05-18] MEDS: BLOOD SUGAR DIAGNOSTIC 1 EACH STRIP IN SCH ×2 (05:39→12:29)
--- NOTE | 2020-05-18 07:00 | NUR ---
RT PATIENT REC'D TRACHED ON VENT WITH NOTED SETTINGS. ALARMS CHECKED + AUDIBLE. AMBU BAG AT HOB. PATIENT AWAKE AND RESPONSIVE. NO DISTRESS NOTED. Addendum: 05/18/20 at 1513 by SIRIA CONNORS RT Amended: Links added.
--- NOTE | 2020-05-18 07:15 | NUR ---
RN OPENING NOTE Received patient asleep in bed appears calm and relaxed no signs of distress. On trach and vent Shiley 8 xlt simv 10, tv 600 fio2 40% peep 5 tolerating well. Patient is AO X1 tries to remove lines. On bilateral soft wrist restraints. Tele reading SR 80-90s. GTF running Two Zane HN @ 50ml/hr. L Wrist #20 flushes well. Noted with red discharge on diaper. Will follow up with MD if to hold Eliquis. Repositioned done. Safety measures reinforced. Bed locked and on lowest position. Will cont to monitor.
[2020-05-18 07:54] LABS: BASOPHILS # (AUTO) 0.1 /CMM (0.0-0.2); BASOPHILS % (AUTO) 1.2 % (0.0-2.0); EOSINOPHILS % (AUTO) 6.6 % (0.0-6.0); HEMATOCRIT 30 % (39-51); HEMOGLOBIN 9.5 g/dL (13.5-17.5); LYMPHOCYTES # (AUTO) 1.8 /CMM (0.8-4.8); LYMPHOCYTES % (AUTO) 23.3 % (20.0-44.0); MEAN CORPUSCULAR HGB CONC 32 g/dl (31.0-36.0); MEAN CORPUSCULAR VOLUME 92 fL (80-96); MONOCYTES # (AUTO) 0.9 /CMM (0.1-1.30); MONOCYTES % (AUTO) 11.9 % (2.0-12.0); NEUTROPHILS # (AUTO) 4.5 /CMM (1.8-8.9); PLATELET COUNT (AUTO) 225 /CMM (150-450); RED BLOOD CELL COUNT(AUTO) 3.23 MIL/uL (4.5-6.0); WHITE BLOOD COUNT (AUTO) 7.9 K/uL (4.3-11.0)
[2020-05-18 08:00] VITALS: BP 96/51
[2020-05-18] MEDS: ZINC SULFATE 220 MG CAPSULE GT SCH (08:25)
[2020-05-18] MEDS: LEVETIRACETAM SOL (5 ML) 100 MG/ML UDC GT SCH (08:25)
[2020-05-18] MEDS: PANTOPRAZOLE 40 MG/PACK PACK GT SCH (08:25)
[2020-05-18] MEDS: AMIODARONE HCL 200 MG TABLET GT SCH (08:25)
[2020-05-18] MEDS: CARVEDILOL 3.125 MG TABLET GT SCH (08:26)
[2020-05-18] MEDS: QUETIAPINE FUMARATE 25 MG TABLET PO SCH (08:27)
[2020-05-18] MEDS: POLYETHYLENE GLYCOL 3350 17 GM POWD.PACK GT SCH (08:27)
[2020-05-18 08:33] LABS: ALBUMIN 2.4 g/dL (3.4-5.0); BILIRUBIN,TOTAL 0.6 mg/dL (0.2-1.0); CALCIUM, SERUM 9.3 mg/dL (8.5-10.1); CREATININE 1.1 mg/dL (0.6-1.3); MAGNESIUM 2.2 mg/dL (1.8-2.4); PHOSPHORUS 3.5 mg/dL (2.5-4.9); POTASSIUM 3.9 mmol/L (3.5-5.1); TOTAL PROTEIN, SERUM 7.3 g/dL (6.4-8.2)
[2020-05-18] MEDS: APIXABAN 5 MG TABLET GT SCH (09:00)
[2020-05-18] MEDS: CLOTRIMAZOLE 1% 15 GM TUBE TP SCH (09:14)
[2020-05-18] MEDS: Z GUARD REMEDY 2 OZ OINT TP SCH (09:14)
[2020-05-18] MEDS: AMMONIUM LACTATE 227 GM BOTTLE TP SCH (09:15)
--- NOTE | 2020-05-18 09:57 | NUR ---
GAVE REPORT TO EPI FORD FOR JOHN
--- NOTE | 2020-05-18 10:00 | NUR ---
RN NOTES RECEIVED REPORT FROM JUAQUIN FORD. PT STABLE. VS WNL. PER MD ORDER HOLD NEVILLE. WILL CONTINUE TO MONITOR
[2020-05-18] MEDS ORDERED: AMPI500C11 GT (11:54)
[2020-05-18 12:00] VITALS: BP 98/52
[2020-05-18] MEDS ORDERED: INFLUENZA VACCINE 2020-21 0.5 ML DISP.SYRIN IM ONE (14:00)
--- NOTE | 2020-05-18 15:15 | NUR ---
RN CLOSING NOTES PT DISCHARGED. REPORT GIVEN TO HANNAH FORD OF [facility]. ACCOMPANIED BY AMBULANCE CREW. PT STABLE. VS WNL. PNEUMOCCAL VACCINE AND FLU VACCINE GIVEN.
[2020-05-19 08:09] LABS: PTH, INTACT 19 pg/mL (15-65)
[2020-05-22 15:07] LABS: *SPE A/G RATIO 0.6 (0.7-1.7); *SPE ALBUMIN 2.4 g/dL (2.9-4.4); *SPE ALPHA-1-GLOBULIN 0.3 g/dL (0.0-0.4); *SPE BETA GLOBULIN 1.3 g/dL (0.7-1.3); *SPE GLOBULIN, TOTAL 4.2 g/dL (2.2-3.9); *SPE M-SPIKE Not Observed g/dL (Not Observed); *SPEGAMMA GLOBULIN 1.6 g/dL (0.4-1.8)
== END 2020-05-18 15:00 | DRG 207 ==
LOC: ER 13:43 → TELE1 17:51
PROVIDERS: ADMIT Nurse Practitioner Acute Care; ATTEND Nurse Practitioner Acute Care
PROC: 5A1955Z Respiratory Ventilation, Greater than 96 Consecutive Hours (ICD-10-PCS; principal; 2020-05-13)
DX: J96.20 Acute and chronic respiratory failure, unspecified whether with hypoxia or hypercapnia (principal); N17.0 Acute kidney failure with tubular necrosis; R53.2 Functional quadriplegia; J15.9 Unspecified bacterial pneumonia; Z99.11 Dependence on respirator [ventilator] status; E46 Unspecified protein-calorie malnutrition; E87.1 Hypo-osmolality and hyponatremia; J90 Pleural effusion, not elsewhere classified; E86.0 Dehydration; E87.6 Hypokalemia; G40.909 Epilepsy, unspecified, not intractable, without status epilepticus; I10 Essential (primary) hypertension; I25.10 Atherosclerotic heart disease of native coronary artery without angina pectoris; E66.9 Obesity, unspecified; E11.9 Type 2 diabetes mellitus without complications; D63.8 Anemia in other chronic diseases classified elsewhere; Z79.82 Long term (current) use of aspirin; Z93.0 Tracheostomy status; I48.0 Paroxysmal atrial fibrillation; F29 Unspecified psychosis not due to a substance or known physiological condition; Z68.25 Body mass index [BMI] 25.0-25.9, adult; L89.616 Pressure-induced deep tissue damage of right heel; L89.626 Pressure-induced deep tissue damage of left heel; N13.9 Obstructive and reflux uropathy, unspecified; Z93.1 Gastrostomy status; R13.10 Dysphagia, unspecified; Z79.01 Long term (current) use of anticoagulants; Z74.01 Bed confinement status; Z79.4 Long term (current) use of insulin; R31.9 Hematuria, unspecified; B95.2 Enterococcus as the cause of diseases classified elsewhere
CPT/HCPCS: 31720; 36415; 71045-TC; 74018; 76770-TC; 80048-TC; 80053-TC; 80061-TC; 81001; 82550-TC; 82570-TC; 82728-TC; 82962-TC; 83540-TC; 83735-TC; 83970; 84100-TC; 84155; 84155-TC; 84165; 84300-TC; 84439-TC; 84443-TC; 84484-TC; 85025-TC; 86140-TC; 87086-TC; 87186-TC; 90732; 93307-TC; 94003-TC; 94760-TC; 94762-TC; 94799-TC; A4349; A7526; G0378; J1815; J1953; J2060; J2543; J3480; J3490; J7030; J7040; J7050; J7060; J7070; Q2036; Q9963; U0003

== ENCOUNTER 2020-05-26 10:30 | Inpatient (IN) | payer MEDICARE, OTHER ==
[~2020-05-26] VITALS: Ht 182.9 cm; Wt 90.3 kg
[2020-05-26] MEDS: SIMVASTATIN 20 MG TABLET GT SCH (03:32)
[~2020-05-26 10:30] MED LIST: AMIO200T5 GT; AMPI500C11 GT; APIX5TAB GT; ASPI-1169 GT; BISA5TAB10 GT; CARV3.122 GT; DOCU50LI GT; FURO-144 GT; INSU100V7 SQ; LEVE100S GT; LOSA25TA27 GT; PANT40SU2 GT; PIPE3.379 IV; POLY17PO4 GT; QUET25TA PO; SIMV-46 GT; ZINC1CAP2 GT
--- NOTE | 2020-05-26 10:50 | NUR ---
ELIZABETH FROM [facility] C/O HEMATURIA X 3DAYS HGB 4.9, TO ER BED 8, HOOKED TO MONITOR. PATIENT ON SHILEY XLT TRACH 8.0 CONNECTED TO VENTILATOR WITH SETTINGS OF VT: 500, O2 40% AND PEEP OF 5. PATIIENT NOTED WITH G-TUBE AND CAREY CATHETER WITH BLOODY URINE OUTPUT. CHANGED TO HOSP GOWN, WARM BLANKET PROVIDED. DR MILLER AT BEDSIDE FOR EVAL
[2020-05-26 11:44] LABS: BASOPHILS % (AUTO) 0.2 % (0.0-2.0); EOSINOPHILS % (AUTO) 1.9 % (0.0-6.0); LYMPHOCYTES # (AUTO) 1.6 /CMM (0.8-4.8); LYMPHOCYTES % (AUTO) 9.4 % (20.0-44.0); MEAN CORPUSCULAR HGB CONC 32 g/dl (31.0-36.0); MEAN CORPUSCULAR VOLUME 91 fL (80-96); MONOCYTES # (AUTO) 1.2 /CMM (0.1-1.30); MONOCYTES % (AUTO) 6.7 % (2.0-12.0); NEUTROPHILS % (AUTO) 81.8 % (43.0-81.0); PLATELET COUNT (AUTO) 210 /CMM (150-450); WHITE BLOOD COUNT (AUTO) 17.2 K/uL (4.3-11.0)
[2020-05-26] MEDS ORDERED: IPRA4AER IH ×2 (11:44)
[2020-05-26] MEDS ORDERED: LORA-259 GT (11:44)
[2020-05-26] MEDS ORDERED: NA P133E RC (11:44)
[2020-05-26] MEDS ORDERED: ACET-868 GT (11:44)
[2020-05-26] MEDS ORDERED: CHLO118L6 TP (11:44)
[2020-05-26] MEDS ORDERED: OMEP20CA15 GT (11:44)
[2020-05-26] MEDS ORDERED: MAGN400O6 GT (11:44)
[2020-05-26] MEDS ORDERED: MULT-447 GT (11:44)
[2020-05-26] MEDS ORDERED: POLY17PO4 GT (11:44)
[2020-05-26] MEDS ORDERED: BISA10SU11 RC (11:44)
[2020-05-26] MEDS ORDERED: AMIN30LI2 GT (11:44)
[2020-05-26] MEDS ORDERED: ACET-2605 GT (11:44)
[2020-05-26] MEDS ORDERED: CHLO473M5 MM (11:44)
[2020-05-26] MEDS ORDERED: QUET25TA GT (11:44)
[2020-05-26 11:53] LABS: RED BLOOD CELL COUNT(AUTO) 1.54 MIL/uL (4.5-6.0)
[2020-05-26 11:55] LABS: HEMOGLOBIN 4.5 g/dL (13.5-17.5)
[2020-05-26 11:56] LABS: HEMATOCRIT 14 % (39-51)
--- NOTE | 2020-05-26 11:56 | NUR ---
CALLED NURSING SUP FOR M/S BED.
[2020-05-26 11:58] LABS: BILIRUBIN,URINE MODERATE (NEGATIVE); BLOOD, URINE LARGE Ery/uL (NEGATIVE); COLOR,URINE RED (YELLOW); LEUKOCYTE ESTERASE ,URINE LARGE (NEGATIVE); NITRITE, URINE POSITIVE (NEGATIVE); PH,URINE 6.5 (5.0-8.0); PROTEIN,URINE >=300 mg/dl (NEGATIVE); UGLUCOSE 250 MG/DL mg/dL (NEGATIVE)
[2020-05-26 12:11] LABS: RBC,URINE TOO NUMEROUS TO COUN /HPF (0-2)
[2020-05-26 12:12] LABS: BACTERIA,URINE Moderate /HPF (None Seen); SQUAMOUS EPITHELIAL CELL,UR Rare /HPF (None Seen); WBC,URINE 21-50 /HPF (0-3)
[2020-05-26] MEDS ORDERED: NA PHOS,M-B/NA PHOS,DI-BA 1 EA ENEMA RC PRN (12:30)
[2020-05-26] MEDS ORDERED: HYDROCODONE/APAP 5/325MG TABLET PO PRN (12:30)
[2020-05-26] MEDS ORDERED: LORAZEPAM 1 MG TABLET GT PRN (12:30)
[2020-05-26] MEDS ORDERED: ALBUTEROL FS 2.5 MG/3 ML VIAL.NEB NEB PRN (12:30)
[2020-05-26] MEDS ORDERED: MAGNESIUM HYDROXIDE 30 ML UDC PO PRN (12:30)
[2020-05-26] MEDS ORDERED: DEXTROSE 50%-WATER 50 ML DISP.SYRIN IV PRN (12:30)
[2020-05-26] MEDS ORDERED: Z GUARD REMEDY 2 OZ OINT TP PRN (12:30)
[2020-05-26] MEDS ORDERED: BISACODYL SUPP (10 MG) 10 MG/SUPP.RECT SUPP.RECT RC PRN (12:30)
[2020-05-26] MEDS ORDERED: MAG HYDROX/AL HYDROX/SIMETH 30 ML UDC PO PRN (12:30)
[2020-05-26] MEDS ORDERED: ACETAMINOPHEN 325 MG TABLET PO PRN (12:30)
[2020-05-26] MEDS ORDERED: ONDANSETRON HCL/PF 4 MG/2 ML VIAL IVP PRN (12:30)
[2020-05-26 13:10] LABS: CARBON DIOXIDE 27 mmol/L (21-32); CHLORIDE 99 mmol/L (98-107); CREATININE 3.9 mg/dL (0.6-1.3); GLUCOSE 109 mg/dL (74-106); POTASSIUM 4.5 mmol/L (3.5-5.1); SODIUM SERUM 136 mmol/L (136-145); UREA NITROGEN, BLOOD 75 mg/dL (7-18)
[2020-05-26 13:20] LABS: ALANINE AMINOTRANSFERASE 17 U/L (12-78); ALBUMIN 1.8 g/dL (3.4-5.0); ALKALINE PHOSPHATASE 111 U/L (46-116); ASPARTATE AMINOTRANSFERASE 26 U/L (15-37); B-TYPE NATRIURETIC PEPTIDE 4842 PG/ML (0-125); BILIRUBIN,DIRECT 0.2 mg/dL (0.0-0.2); BILIRUBIN,TOTAL 0.3 mg/dL (0.2-1.0); TOTAL PROTEIN, SERUM 6.4 g/dL (6.4-8.2)
[2020-05-26] MEDS: CEFTRIAXONE 1 G in IV D5W 50 ML IV SCH (15:00)
[2020-05-26] MEDS ORDERED: IPRATROPIUM NEB FS 0.5 MG/2.5 ML AMPUL.NEB NEB PRN (16:00)
[2020-05-26 16:47] LABS: BAND % (MANUAL) 1 % (0.0-5.0); EOSINOPHILS % (MANUAL) 2 % (0-4); LYMPHOCYTES % (MANUAL) 16 % (16-48); MONOCYTES % (MANUAL) 3 % (0-11.0); NEUTROPHILS % (MANUAL) 78 (42-76)
--- NOTE | 2020-05-26 16:56 | NUR ---
covid swab done sent to lab
--- NOTE | 2020-05-26 17:57 | NUR ---
per main lab, blood unit not ready yet.
--- NOTE | 2020-05-26 18:22 | NUR ---
ASSISTED DR RODRIGUEZ WITH IRRIGATING BLADDER OF PATIENT.
--- NOTE | 2020-05-26 18:41 | NUR ---
CONTINUED WITH BLADDER IRRIGATION USING 3L NS IRRIGATION FLUID CUSTODIAL VIA GRAVITY. REDDISH PINK OUTPUT NOTED. WILL CONTINUE TO MONITOR.
--- NOTE | 2020-05-26 19:27 | NUR ---
CONTINOUS BLADDER IRRIGATION. NOTED WITH LIGHT PINK TINGED OUTPUT.
[2020-05-26] MEDS: QUETIAPINE FUMARATE 25 MG TABLET GT SCH (19:30)
[2020-05-26] MEDS: AMIODARONE HCL 200 MG TABLET GT SCH (19:30)
[2020-05-26] MEDS: LEVETIRACETAM SOL (5 ML) 100 MG/ML UDC GT SCH (19:30)
[2020-05-26] MEDS: POLYETHYLENE GLYCOL 3350 17 GM POWD.PACK GT SCH (19:30)
--- NOTE | 2020-05-26 19:34 | NUR ---
ASSUMED CARE. REPORT RECEIVED, FROM AM SHIFT RN. PT RESTING COMFORTABLY WITH EYES PERRLA. NO ACUTE DISTRESS NOTED, RESP EVEN AND UNLABORED. PT TOLERATING CURRENT VENT SETTINGS OF TV- 500, FIO2-40%, PEEP-5. LUNG SOUNDS RHONCHI HEARD BILATERALLY ON AUSCULTATION. NO PAIN OR DISCOMFORT NOTED AT THIS TIME. PT REMAINS ON CARDIAC MONITORING, CONTINUOUS POX. F/C 22FR IN PLACE, DRAINING BY GRAVITY WITH PINKISH COLOR URINE NOTED WITH CONTINUOUS BLADDER IRRIGATION INFUSING. REPOSITIONED PT FOR COMFORT. WILL CONTINUE TO MONITOR PT CLOSELY. NOTED BILATERAL HAND MITTENS IN PLACE DUE TO PT KEEPS ON PULLING OUT MONITOR CABLES AND G-TUBE. CALL LIGHT WITHIN REACH.
--- NOTE | 2020-05-26 19:52 | NUR ---
REPORT GIVEN TO CATHY FORD FOR JOHN
--- NOTE | 2020-05-26 20:45 | NUR ---
BLOOD TRANSFUSION INITIATED. 2RNS AT BEDSIDE.
[2020-05-26] MEDS: BLOOD SUGAR DIAGNOSTIC 1 EACH STRIP VI SCH (22:00)
--- NOTE | 2020-05-26 22:31 | NUR ---
PT IN BED RESTING, VSS.
[2020-05-26] MEDS: GENTAMICIN 80 MG in IV D5W 100 ML IV SCH (23:44)
[2020-05-27] MEDS ORDERED: SIMVASTATIN 20 MG TABLET ONE (03:25)
[2020-05-27 05:19] LABS: BASOPHILS % (AUTO) 0.2 % (0.0-2.0); EOSINOPHILS % (AUTO) 1.7 % (0.0-6.0); HEMATOCRIT 21 % (39-51); LYMPHOCYTES # (AUTO) 1.5 /CMM (0.8-4.8); LYMPHOCYTES % (AUTO) 10.7 % (20.0-44.0); MEAN CORPUSCULAR HGB CONC 32 g/dl (31.0-36.0); MEAN CORPUSCULAR VOLUME 90 fL (80-96); MONOCYTES # (AUTO) 1.1 /CMM (0.1-1.30); MONOCYTES % (AUTO) 7.7 % (2.0-12.0); NEUTROPHILS # (AUTO) 11.1 /CMM (1.8-8.9); NEUTROPHILS % (AUTO) 79.7 % (43.0-81.0); PLATELET COUNT (AUTO) 214 /CMM (150-450); RED BLOOD CELL COUNT(AUTO) 2.31 MIL/uL (4.5-6.0)
[2020-05-27 05:41] LABS: CALCIUM, SERUM 8.2 mg/dL (8.5-10.1); CARBON DIOXIDE 27 mmol/L (21-32); CHLORIDE 103 mmol/L (98-107); CREATININE 2.6 mg/dL (0.6-1.3); GLUCOSE 91 mg/dL (74-106); MAGNESIUM 2.9 mg/dL (1.8-2.4); PHOSPHORUS 5.2 mg/dL (2.5-4.9); POTASSIUM 4.1 mmol/L (3.5-5.1); SODIUM SERUM 140 mmol/L (136-145); UREA NITROGEN, BLOOD 60 mg/dL (7-18)
[2020-05-27] MEDS: BLOOD SUGAR DIAGNOSTIC 1 EACH STRIP VI SCH ×4 (08:25→22:06)
--- NOTE | 2020-05-27 08:45 | NUR ---
LAB CALLED HEMOGLOBIN 6.7
[2020-05-27 08:46] LABS: HEMOGLOBIN 6.7 g/dL (13.5-17.5)
--- NOTE | 2020-05-27 08:50 | NUR ---
DR. LAWS MADE AWARE OF LOW HGB LEVEL.
--- NOTE | 2020-05-27 08:55 | NUR ---
TEXTED DR. LAWS RE: PATIENT HAVING NO G-TUBE FEEDING AT THIS TIME. NO ORDER RECEIVED AT THIS TIME.
[2020-05-27] MEDS ORDERED: NUT.237L30 GT (08:59)
[2020-05-27] MEDS: CARVEDILOL 3.125 MG TABLET GT SCH ×2 (09:00→20:20)
[2020-05-27] MEDS: LEVETIRACETAM SOL (5 ML) 100 MG/ML UDC GT SCH ×2 (09:12→20:20)
[2020-05-27] MEDS: QUETIAPINE FUMARATE 25 MG TABLET GT SCH ×2 (09:12→20:20)
[2020-05-27] MEDS: POLYETHYLENE GLYCOL 3350 17 GM POWD.PACK GT SCH ×2 (09:12→21:00)
[2020-05-27] MEDS: PANTOPRAZOLE 40 MG/PACK PACK GT SCH (09:12)
[2020-05-27] MEDS: ZINC SULFATE 220 MG CAPSULE GT SCH (09:12)
[2020-05-27] MEDS: AMIODARONE HCL 200 MG TABLET GT SCH ×2 (09:13→20:20)
[2020-05-27] MEDS: CEFTRIAXONE 1 G in IV D5W 50 ML IV SCH (15:03)
--- NOTE | 2020-05-27 16:35 | NUR ---
Recevied a call from the lab positive MRSA
--- NOTE | 2020-05-27 19:15 | NUR ---
RECEIVED REPORT FROM CUONG FORD FOR JOHN. PT IN ER BED 08 ON TELE MONITOR, VSS, NAD NOTED HOWEVER PT IS STILL HAVING RICHARD RED BLOOD IN CAREY CATH. PT TOLERATING VENT ON PREVIOUS SETTINGS, 40% FIO2. IV SALINE LOCKED, PATENT, NO S/SX INFECTION OR INFILTRATION. GTUBE CLAMPED, PER CUONG NNO RE FEEDINGS FROM . HEELS OFFLOADED WITH BOOTIES. HOB ELEVATED 30%.
--- NOTE | 2020-05-27 19:29 | NUR ---
Requested 1700 medications from pharmacy. Pharmacy has not delivered medications. Endorsed 1700 medications to Kimberly FORD.
[2020-05-27] MEDS ORDERED: QUETIAPINE FUMARATE 25 MG TABLET ONE (20:09)
[2020-05-27] MEDS ORDERED: CARVEDILOL 6.25 MG TABLET ONE (20:10)
[2020-05-27] MEDS ORDERED: AMIODARONE HCL 200 MG TABLET ONE (20:10)
[2020-05-27] MEDS ORDERED: LEVETIRACETAM (250 MG) 250 MG TABLET PO ONE (20:10)
[2020-05-27] MEDS: GENTAMICIN 80 MG in IV D5W 100 ML IV SCH (20:28)
--- NOTE | 2020-05-27 21:46 | NUR ---
CALLED NURSING SUP FOR BUNNY VALDES
[2020-05-27] MEDS: GLUCERNA SHAKE 237 ML CAN GT SCH (22:06)
[2020-05-27] MEDS: SIMVASTATIN 20 MG TABLET GT SCH (22:41)
--- NOTE | 2020-05-27 23:10 | NUR ---
UOP NOTED APPROX 50ML/HR WITH RICHARD RED BLOOD, NO CLOTS NOTED. DRAINING TO GRAVITY. PT PULLING ON CAREY MULTIPLE TIMES, ATTEMPTED REPEATEDLY TO REORIENT AND EDUCATE PT.
--- NOTE | 2020-05-27 23:21 | NUR ---
NOTIFIED ROSLYN THIBODEAUX HARNESS BUILDER ABOUT SLIGHT TACHYCARDIA AND NO HYDRATION OR FEEDING ORDERS. SHE STATES SHE WILL LOOK INTO IT.
--- NOTE | 2020-05-27 23:23 | NUR ---
NOTED STANDING ORDER FOR BLOOD TRANSFUSION. CALLED BLOOD BANK.
--- NOTE | 2020-05-28 00:11 | NUR ---
BLOOD IS READY
--- NOTE | 2020-05-28 00:35 | NUR ---
BLOOD TRANSFUSION STARTED 1 UNIT PRBC PER STANDING ORDER FOR HEMOGLOBIN <7
--- NOTE | 2020-05-28 01:07 | NUR ---
Patient is breathing evenly and unlabored on room air. Beckwith catheter is draining with no signs of clogging. patient is Trach-vent dependent.
--- NOTE | 2020-05-28 02:01 | NUR ---
Patient repositioned to the right.
--- NOTE | 2020-05-28 02:12 | NUR ---
blood transfusion completed. no transfusion adverse reaction noted. no redness or warmth at the site of infusion. patient tolerated the blood transfusion well.
--- NOTE | 2020-05-28 04:29 | NUR ---
Patient is repositioned to the left. patient is cleaned, provided jose-care with no signs of distress.Bed sheet is changed and replaced with fresh clean sheets w/ new gown.
--- NOTE | 2020-05-28 05:22 | NUR ---
rt at bedside for cpap placement with 10 pressure support, 40% Fi02, and 5 PEEP
[2020-05-28 06:21] LABS: BASOPHILS # (AUTO) 0.1 /CMM (0.0-0.2); BASOPHILS % (AUTO) 0.7 % (0.0-2.0); EOSINOPHILS % (AUTO) 3.1 % (0.0-6.0); HEMATOCRIT 26 % (39-51); HEMOGLOBIN 8.2 g/dL (13.5-17.5); LYMPHOCYTES % (AUTO) 12.6 % (20.0-44.0); MEAN CORPUSCULAR HGB CONC 32 g/dl (31.0-36.0); MEAN CORPUSCULAR VOLUME 93 fL (80-96); MONOCYTES # (AUTO) 1.2 /CMM (0.1-1.30); MONOCYTES % (AUTO) 7.3 % (2.0-12.0); NEUTROPHILS # (AUTO) 12.1 /CMM (1.8-8.9); NEUTROPHILS % (AUTO) 76.3 % (43.0-81.0); PLATELET COUNT (AUTO) 236 /CMM (150-450); RED BLOOD CELL COUNT(AUTO) 2.76 MIL/uL (4.5-6.0); WHITE BLOOD COUNT (AUTO) 15.9 K/uL (4.3-11.0)
--- NOTE | 2020-05-28 06:25 | NUR ---
Patient is repositioned to the right.
[2020-05-28 06:31] LABS: CALCIUM, SERUM 8.4 mg/dL (8.5-10.1); CARBON DIOXIDE 20 mmol/L (21-32); CHLORIDE 104 mmol/L (98-107); CREATININE 1.8 mg/dL (0.6-1.3); GLUCOSE 94 mg/dL (74-106); MAGNESIUM 2.8 mg/dL (1.8-2.4); PHOSPHORUS 3.8 mg/dL (2.5-4.9); POTASSIUM 4.2 mmol/L (3.5-5.1); SODIUM SERUM 139 mmol/L (136-145); UREA NITROGEN, BLOOD 50 mg/dL (7-18)
--- NOTE | 2020-05-28 08:06 | NUR ---
PATIENT REPOSITIONED ON THE LEFT SIDE
[2020-05-28] MEDS: GLUCERNA SHAKE 237 ML CAN GT SCH ×4 (08:13→21:00)
[2020-05-28] MEDS: BLOOD SUGAR DIAGNOSTIC 1 EACH STRIP VI SCH ×4 (08:13→21:10)
[2020-05-28] MEDS: AMIODARONE HCL 200 MG TABLET GT SCH ×2 (08:22→21:02)
[2020-05-28] MEDS: POLYETHYLENE GLYCOL 3350 17 GM POWD.PACK GT SCH ×2 (08:22→21:02)
[2020-05-28] MEDS: CARVEDILOL 3.125 MG TABLET GT SCH ×2 (08:22→21:02)
[2020-05-28] MEDS: LEVETIRACETAM SOL (5 ML) 100 MG/ML UDC GT SCH ×2 (08:22→21:02)
[2020-05-28] MEDS: QUETIAPINE FUMARATE 25 MG TABLET GT SCH ×2 (08:23→21:03)
[2020-05-28] MEDS: ZINC SULFATE 220 MG CAPSULE GT SCH (08:23)
[2020-05-28] MEDS: PANTOPRAZOLE 40 MG/PACK PACK GT SCH (08:23)
--- NOTE | 2020-05-28 10:12 | NUR ---
PATIENT REPOSITIONED ON THE RIGHT SIDE
--- NOTE | 2020-05-28 12:04 | NUR ---
PATIENT REPOSITIONED ON THE SUPINE POSITION
--- NOTE | 2020-05-28 14:08 | NUR ---
PATIENT REPOSITIONED ON THE LEFT SIDE
[2020-05-28] MEDS: CEFTRIAXONE 1 G in IV D5W 50 ML IV SCH (15:00)
--- NOTE | 2020-05-28 16:02 | NUR ---
REPOSITIONED TO R SIDE
--- NOTE | 2020-05-28 18:09 | NUR ---
REPOSITIONED TO SUPINE POSITION
--- NOTE | 2020-05-28 19:06 | NUR ---
REPORT GIVEN TO GIOVANNA FORD OF TELE
[2020-05-28 19:50] VITALS: BP 166/74
--- NOTE | 2020-05-28 19:50 | NUR ---
PUBLIC HEALTH ANALYST ADMISSION NOTES RECEIVED PATIENT FROM ER, VIS BOYHELPER MECHANICAL VENT DEPENDENT WITH RT AND RN AT BEDSIDE, MECHANICAL VENT SET UP BY RT PLUGGED IN RED EMERGENCY PLUGG ALARMS AUDIBLE, AMBUBAG AT BEDSIDE, SUCTION SET UP IN PLACE, AWAKE AND ALERT X1, CAREY CATHETER NOTED WITH HEMATURIA, RED IN COLOR IV SITE TO LEFT AC#20 G INTACT AND PATENT, NO REDNESS, NO INFILTRATION PRESENT, ON SUPERVISOR DRYING ST 106, APPEARS COMFORTABLE FREE OF OMAR DISTRESS, RECEIVED WITH SOFT BILATERAL WRIST RESTRAINTS, PER REPORT PATIENT REMOVES MEDICAL TUBING, HEAD OF BED ELEVATED FOR ASPIRATION PRECAUTIONS, GTUBE INTACT AND PATENT, 5 RESIDUALS CLEAR NOTED. WILL CONTINUE TO MONITOR AND CARRY OUT MD ORDERS, HEELS OFFLOADED, REMAINS COMFORTABLE.
[2020-05-28 20:00] VITALS: BP_SYST 122; BP_SYST 166; BP_DIAS 58; BP_DIAS 74
--- NOTE | 2020-05-28 20:41 | NUR ---
HOT METAL CRANE OPERATOR NOTES RECEIVED ORDER FRO GLUCERNA 1.2 AT 40CC/HR. AND NEW ORDER RECEIVED FOR BILATERAL SOFT WRIST BILATERAL RESTRAINTS, , PATIENT PULLS ON MEDICAL TUBING.
[2020-05-28] MEDS: GLUCERNA 1.2 1,000 ML BOTTLE NG PRN (20:59)
[2020-05-28] MEDS: MUPIROCIN OINT 2% 22 GM TUBE NS SCH (21:00)
[2020-05-28] MEDS: SIMVASTATIN 20 MG TABLET GT SCH (21:03)
[2020-05-28] MEDS: *INSULIN REGULAR(HUMULIN R)HUM 100 UNIT/ML VIAL SQ PRN (21:05)
[2020-05-28] MEDS ORDERED: GENTAMICIN 80 MG/2 ML VIAL ONE (21:10)
--- NOTE | 2020-05-28 21:11 | NUR ---
ALMOND ROASTER NOTES GLUCERNA CAN NOTE GIVEN STARTED GLUCERNA 1.2 ORDERED,
--- NOTE | 2020-05-28 21:12 | NUR ---
ASSISTANT BOYS TRACK COACH NOTES UNABLE TO GIVE BACTROBAN OINTMENT NOT WITH PATIENT WHEN TRANSFERRED FROM ER, UNAVAILABLE WITH ER MEDS, AND NOT IN CASSETTE.
--- NOTE | 2020-05-28 22:24 | NUR ---
rn intensive care unit notes unable to give gentamicin as ordered, trough is still pending.
[2020-05-28] MEDS: GENTAMICIN 80 MG in IV D5W 100 ML IV SCH (22:36)
[2020-05-29] VITALS (7 sets, daily range): BP systolic 106–134; BP diastolic 45–92
[2020-05-29] MEDS: INSULIN REGULAR, HUMAN 100 UNIT/ML 3 ML VIAL SQ PRN (06:07)
[2020-05-29] MEDS: BLOOD SUGAR DIAGNOSTIC 1 EACH STRIP VI SCH ×4 (06:07→21:18)
--- NOTE | 2020-05-29 06:42 | NUR ---
NETWORK DESKTOP SUPPORT SPECIALIST CLOSING NOTES PATIENT IN BED HOD ELEVATED FOR ASPIRATION PRECAUTIONS, MECHANICAL VENT DEPENDENT PLUGGED IN RED EMERGENCY PLUG ALARMS AUDIBLE, AMBUBAG AT BEDSIDE, SUCTION SET UP IN PLACE, AWAKE AND ALERT X1, CAREY CATHETER NOTED WITH HEMATURIA CBI CONTINUED RECOMMENDED IN MD NOTES AND UNTIL URINE IS CLEAR, NOTED URINE COGNOS BI DEVELOPER RED COLOR SINCE CBI STARTED ,IV SITE TO LEFT AC#20 G INTACT AND PATENT, NO REDNESS, NO INFILTRATION PRESENT, ON REGISTERED NURSE MATERNITY SB 78, APPEARS COMFORTABLE FREE OF ANY DISTRESS, SOFT BILATERAL WRIST RESTRAINTS IN PLACE. PATIENT ATTEMPTS TO REMOVE MEDICAL TUBING, SKIN CHECKS DONE WNL, PULSES PALPABLE,GTUBE INTACT AND PATENT, 5CC RESIDUALS NOTED TOLERATED FEEDING AT 40CC/HR. WOUND CARE DONE, WOUND CARE CONSULT PENDING, PRESSURE ULCERS TO BOTH HEELS SACRAL BACK OF NECK AND LEFT LOWER EXT. DSG INTACT.REMAINS COMFORTABLE,WILL CONTINUE TO MONITOR AND ENDORSE TO NEXT SHIFT.
--- NOTE | 2020-05-29 07:53 | NUR ---
POWER ENGINEER OPENING NOTE PATIENT IS IN BED RESTING COMFORTABLY. PATIENT IS IN NO ACUTE DISTRESS. PATIENT BREATHING IN EVEN AND UNLABORED. PATIENT IS NON VERBAL RESPONDS TO TOUCH STIMULI. PATIENT IS ON ARRESTING GEAR OPERATOR READING SB 76. PATIENT BED ALARM IS ON. SAFETY PRECAUTION IN PLACE. HOB ELEVATED. PATIENTS BED IS LOCKED IN THE LOWEST POSITION. CALL LIGHT WITHIN REACH. WILL CONTINUE TO MONITOR.
[2020-05-29 08:16] LABS: BASOPHILS % (AUTO) 0.4 % (0.0-2.0); EOSINOPHILS % (AUTO) 3.3 % (0.0-6.0); HEMATOCRIT 25 % (39-51); HEMOGLOBIN 8.1 g/dL (13.5-17.5); LYMPHOCYTES # (AUTO) 1.6 /CMM (0.8-4.8); LYMPHOCYTES % (AUTO) 13.2 % (20.0-44.0); MEAN CORPUSCULAR HGB CONC 33 g/dl (31.0-36.0); MEAN CORPUSCULAR VOLUME 90 fL (80-96); MONOCYTES % (AUTO) 8.4 % (2.0-12.0); NEUTROPHILS # (AUTO) 9.1 /CMM (1.8-8.9); NEUTROPHILS % (AUTO) 74.7 % (43.0-81.0); PLATELET COUNT (AUTO) 248 /CMM (150-450); RED BLOOD CELL COUNT(AUTO) 2.72 MIL/uL (4.5-6.0); WHITE BLOOD COUNT (AUTO) 12.2 K/uL (4.3-11.0)
[2020-05-29] MEDS: AMIODARONE HCL 200 MG TABLET GT SCH ×2 (09:00→17:00)
[2020-05-29] MEDS: CARVEDILOL 3.125 MG TABLET GT SCH ×2 (09:00→17:00)
[2020-05-29] MEDS: POLYETHYLENE GLYCOL 3350 17 GM POWD.PACK GT SCH ×2 (09:37→17:49)
[2020-05-29] MEDS: PANTOPRAZOLE 40 MG/PACK PACK GT SCH (09:37)
[2020-05-29] MEDS: LEVETIRACETAM SOL (5 ML) 100 MG/ML UDC GT SCH ×2 (09:37→17:49)
[2020-05-29] MEDS: QUETIAPINE FUMARATE 25 MG TABLET GT SCH ×2 (09:42→17:49)
[2020-05-29] MEDS: GLUCERNA SHAKE 237 ML CAN GT SCH ×2 (09:44→12:08)
[2020-05-29] MEDS: ZINC SULFATE 220 MG CAPSULE GT SCH (09:44)
--- NOTE | 2020-05-29 09:47 | NUR ---
POTTERY MACHINE OPERATOR NOTE MEDICATIONS CARVEDILOL AND AMIODARONE WAS NOT GIVEN SCHEDULED, DUE TO DECREASED BLOOD PRESSURE.
[2020-05-29] MEDS: MUPIROCIN OINT 2% 22 GM TUBE NS SCH ×2 (10:38→21:14)
[2020-05-29 11:09] LABS: CALCIUM, SERUM 8.3 mg/dL (8.5-10.1); CARBON DIOXIDE 26 mmol/L (21-32); CHLORIDE 107 mmol/L (98-107); CREATININE 1.8 mg/dL (0.6-1.3); GLUCOSE 104 mg/dL (74-106); MAGNESIUM 2.8 mg/dL (1.8-2.4); PHOSPHORUS 3.3 mg/dL (2.5-4.9); POTASSIUM 3.7 mmol/L (3.5-5.1); SODIUM SERUM 144 mmol/L (136-145); UREA NITROGEN, BLOOD 43 mg/dL (7-18)
--- NOTE | 2020-05-29 11:30 | NUR ---
WOUND CARE CONSULT: VERY DIFFICULT ASSESSMENT DUE TO PT COMBATIVE. PT PRESENTS WITH MULTIPLE AREAS OF SKIN DISCOLORATION TO ARMS AND HANDS, MOIST AREA TO RT UPPER NECK FOLD, STAGE 3 ULCERS TO SACRUM AND RT BUTTOCK AND LOWER EXTREMITY WOUNDS, ALL PRESENT ON ADMISSION. LOWER EXTREMITY DRESSSINGS WERE LEFT IN PLACE, DRY AND INTACT. DR TIPTON NOTIFIED OF DPM CONSULT. DR FLANNERY NOTIFIED OF SURGICAL CONSULT. PT TO BE PLACED ON ISABELLE ISOFLEX LOW AIRLOSS BED WHEN AVAILABLE. RECOMMENDATIONS MADE FOR SKIN PROTECTION. DISCUSSED WITH NURSING STAFF. MD IN AGREEMENT WITH PLAN OF CARE. Addendum: 05/29/20 at 1134 by DARCY COSBY WNDNU Amended: Links added.
[2020-05-29] MEDS: CEFTRIAXONE 1 G in IV D5W 50 ML IV SCH (15:12)
--- NOTE | 2020-05-29 18:43 | NUR ---
FUR JOINER NOTE MEDICATIONS CARVEDILOL AND AMIODARONE WAS NOT GIVEN SCHEDULED, DUE TO DECREASED BLOOD PRESSURE.
--- NOTE | 2020-05-29 19:05 | NUR ---
MATERIALS PLANNING ANALYST OPENING NOTES RECEIVED PATIENT IN BED HOB ELEVATED FOR ASPIRATION PRECAUTIONS, MECHANICAL VENT DEPENDENT PLUGGED IN RED EMERGENCY PLUG ALARMS AUDIBLE, AMBUBAG AT BEDSIDE, SUCTION SET UP IN PLACE, AWAKE AND ALERT X1, CAREY CATHETER NOTED WITH HEMATURIA CBI CONTINUED RECOMMENDED IN MD NOTES AND UNTIL URINE IS CLEAR, IV SITE TO LEFT AC#20 G HL INTACT AND PATENT, NO REDNESS, NO INFILTRATION PRESENT, ON PUFFER TENDER SB 82, APPEARS COMFORTABLE FREE OF ANY DISTRESS, SOFT BILATERAL WRIST RESTRAINTS IN PLACE. PATIENT ATTEMPTS TO REMOVE MEDICAL TUBING, SKIN CHECKS DONE WNL, PULSES PALPABLE,GTUBE INTACT AND PATENT, 5CC RESIDUALS NOTED TOLERATED FEEDING AT 40CC/HR. PRESSURE ULCERS TO BOTH HEELS SACRAL BACK OF NECK AND LEFT LOWER EXT. DSG INTACT.REMAINS COMFORTABLE,OFFLOADED WILL CONTINUE TO MONITOR ORIENTED TO STAFF AND CALL LIGHT AND KEPT WITHIN REACH.
--- NOTE | 2020-05-29 19:10 | NUR ---
PIPE BOWLS PAINT TRIMMER CLOSING NOTE PATIENT IS IN BED RESTING COMFORTABLE. PATIENT IN NO ACUTE DISTRESS. NO SOB NOTED. PATIENT IS ON VENT. PATIENTS BREATHING IS EVEN AND UNLABORED. HOB ELEVATED. 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 PATIENT KEPT CLEAN, DRY COMFORTABLE THROUGHOUT THE SHIFT. PATIENT NEEDS ADDRESSED. PATIENT BED ALARM IS ON. BED IS LOCKED AND IN THE LOWEST POSITION. CALL LIGHT WITHIN REACH. ENDORSE TO THE SAMPLE STITCHER NURSE FOR JOHN.
[2020-05-29] MEDS: SIMVASTATIN 20 MG TABLET GT SCH (21:14)
[2020-05-29] MEDS: *INSULIN REGULAR(HUMULIN R)HUM 100 UNIT/ML VIAL SQ PRN (21:18)
[2020-05-29] MEDS: GLUCERNA 1.2 1,000 ML BOTTLE NG PRN (21:20)
--- NOTE | 2020-05-29 22:33 | NUR ---
rn notes hospitalist made aware pt removes medical tubing, new order fro acute medical restraints renewal received noted and carried out. skin wnl, pulses palpable, skin color wnl.
[2020-05-30] VITALS: BP 140/54
[2020-05-30 04:00] VITALS: BP 110/85
[2020-05-30] MEDS: BLOOD SUGAR DIAGNOSTIC 1 EACH STRIP VI SCH ×2 (06:10→13:01)
[2020-05-30] MEDS: INSULIN REGULAR, HUMAN 100 UNIT/ML 3 ML VIAL SQ PRN (06:10)
--- NOTE | 2020-05-30 07:00 | NUR ---
SUPERVISOR FRYER FARM CLOSING NOTES PATIENT IN BED HOB ELEVATED FOR ASPIRATION PRECAUTIONS, MECHANICAL VENT DEPENDENT PLUGGED IN RED EMERGENCY PLUG ALARMS AUDIBLE, AMBUBAG AT BEDSIDE, SUCTION SET UP IN PLACE, AWAKE AND ALERT X1, CAREY CATHETER NOTED WITH HEMATURIA CBI CONTINUED RECOMMENDED IN MD NOTES AND UNTIL URINE IS CLEAR, IV SITE TO LEFT AC#20 G HL INTACT AND PATENT, NO REDNESS, NO INFILTRATION PRESENT, ON SERVICES ACCOUNT MANAGER SB 79, APPEARS COMFORTABLE FREE OF ANY DISTRESS, SOFT BILATERAL WRIST RESTRAINTS IN PLACE. PATIENT ATTEMPTS TO REMOVE MEDICAL TUBING, SKIN CHECKS DONE WNL, PULSES PALPABLE,GTUBE INTACT AND PATENT, 5CC RESIDUALS NOTED TOLERATED FEEDING AT 40CC/HR. PRESSURE ULCERS TO BOTH HEELS SACRAL BACK OF NECK AND LEFT LOWER EXT. DSG INTACT.REMAINS COMFORTABLE,OFFLOADED WILL CONTINUE TO MONITOR CALL LIGHT AND KEPT WITHIN REACH AND WILL ENDORSE TO NEXT SHIFT.
[2020-05-30 07:19] LABS: BASOPHILS # (AUTO) 0.1 /CMM (0.0-0.2); BASOPHILS % (AUTO) 0.7 % (0.0-2.0); EOSINOPHILS % (AUTO) 3.3 % (0.0-6.0); HEMATOCRIT 27 % (39-51); HEMOGLOBIN 8.7 g/dL (13.5-17.5); LYMPHOCYTES # (AUTO) 2.2 /CMM (0.8-4.8); LYMPHOCYTES % (AUTO) 13.8 % (20.0-44.0); MEAN CORPUSCULAR HGB CONC 32 g/dl (31.0-36.0); MEAN CORPUSCULAR VOLUME 93 fL (80-96); MONOCYTES # (AUTO) 1.2 /CMM (0.1-1.30); MONOCYTES % (AUTO) 7.6 % (2.0-12.0); NEUTROPHILS % (AUTO) 74.6 % (43.0-81.0); PLATELET COUNT (AUTO) 270 /CMM (150-450); RED BLOOD CELL COUNT(AUTO) 2.93 MIL/uL (4.5-6.0); WHITE BLOOD COUNT (AUTO) 16.1 K/uL (4.3-11.0)
--- NOTE | 2020-05-30 07:30 | NUR ---
ms rn received on bed, sleeping, g tube intact, tolerating feeding well, gomez catheter to gravity, w/ tea colored urine.no trach intact, bilateral soft wrist restraint, will monitor patient.
[2020-05-30 07:37] LABS: CALCIUM, SERUM 8.4 mg/dL (8.5-10.1); CARBON DIOXIDE 28 mmol/L (21-32); CHLORIDE 109 mmol/L (98-107); CREATININE 1.6 mg/dL (0.6-1.3); GLUCOSE 116 mg/dL (74-106); POTASSIUM 4.2 mmol/L (3.5-5.1); SODIUM SERUM 145 mmol/L (136-145); UREA NITROGEN, BLOOD 36 mg/dL (7-18)
[2020-05-30 08:00] VITALS: BP 117/53
[2020-05-30] MEDS: AMIODARONE HCL 200 MG TABLET GT SCH ×2 (09:00→17:00)
[2020-05-30] MEDS: CARVEDILOL 3.125 MG TABLET GT SCH ×2 (09:00→17:00)
--- NOTE | 2020-05-30 09:40 | NUR ---
ms rn due meds given,tolerated well.
[2020-05-30] MEDS ORDERED: LEVO500T90 PO (10:24)
[2020-05-30] MEDS: ZINC SULFATE 220 MG CAPSULE GT SCH (10:31)
[2020-05-30] MEDS: PANTOPRAZOLE 40 MG/PACK PACK GT SCH (10:31)
[2020-05-30] MEDS: QUETIAPINE FUMARATE 25 MG TABLET GT SCH ×2 (10:32→17:30)
[2020-05-30] MEDS: LEVETIRACETAM SOL (5 ML) 100 MG/ML UDC GT SCH ×2 (10:32→17:30)
[2020-05-30] MEDS: POLYETHYLENE GLYCOL 3350 17 GM POWD.PACK GT SCH ×2 (10:32→17:00)
[2020-05-30 12:00] VITALS: BP 103/60
--- NOTE | 2020-05-30 12:00 | NUR ---
ms rn patient will be discharge today to sn[facility],all needs attended.
[2020-05-30] MEDS: CEFTRIAXONE 1 G in IV D5W 50 ML IV SCH (15:56)
[2020-05-30] MEDS: MUPIROCIN OINT 2% 22 GM TUBE NS SCH (16:05)
[2020-05-30 17:00] VITALS: BP 117/83
== END 2020-05-30 18:45 | DRG 662 ==
LOC: ER 10:40 → TRANSITION 14:50 → TELE 05-28 18:26
PROVIDERS: ADMIT Internal Medicine; ATTEND Internal Medicine
PROC: 0TCB3ZZ Extirpation of Matter from Bladder, Percutaneous Approach (ICD-10-PCS; principal; 2020-05-26)
PROC: 5A1945Z Respiratory Ventilation, 24-96 Consecutive Hours (ICD-10-PCS; 2020-05-26)
PROC: 30233N1 Transfusion of Nonautologous Red Blood Cells into Peripheral Vein, Percutaneous Approach (ICD-10-PCS; 2020-05-26)
DX: T83.83XA Hemorrhage due to genitourinary prosthetic devices, implants and grafts, initial encounter (principal); J96.20 Acute and chronic respiratory failure, unspecified whether with hypoxia or hypercapnia; R53.2 Functional quadriplegia; N17.0 Acute kidney failure with tubular necrosis; E46 Unspecified protein-calorie malnutrition; Z99.11 Dependence on respirator [ventilator] status; N39.0 Urinary tract infection, site not specified; L97.429 Non-pressure chronic ulcer of left heel and midfoot with unspecified severity; L97.419 Non-pressure chronic ulcer of right heel and midfoot with unspecified severity; G93.49 Other encephalopathy; J90 Pleural effusion, not elsewhere classified; R31.0 Gross hematuria; G40.909 Epilepsy, unspecified, not intractable, without status epilepticus; Z93.1 Gastrostomy status; Z20.828 Contact with and (suspected) exposure to other viral communicable diseases; Z93.0 Tracheostomy status; R13.10 Dysphagia, unspecified; Z79.51 Long term (current) use of inhaled steroids; Z79.82 Long term (current) use of aspirin; Z79.4 Long term (current) use of insulin; Z79.899 Other long term (current) drug therapy; Y84.6 Urinary catheterization as the cause of abnormal reaction of the patient, or of later complication, without mention of misadventure at the time of the procedure; Y92.129 Unspecified place in nursing home as the place of occurrence of the external cause; Z79.01 Long term (current) use of anticoagulants; N13.9 Obstructive and reflux uropathy, unspecified; D64.9 Anemia, unspecified; E11.40 Type 2 diabetes mellitus with diabetic neuropathy, unspecified; E11.51 Type 2 diabetes mellitus with diabetic peripheral angiopathy without gangrene; E11.621 Type 2 diabetes mellitus with foot ulcer; E11.622 Type 2 diabetes mellitus with other skin ulcer; E11.22 Type 2 diabetes mellitus with diabetic chronic kidney disease; E78.5 Hyperlipidemia, unspecified; F29 Unspecified psychosis not due to a substance or known physiological condition; I12.9 Hypertensive chronic kidney disease with stage 1 through stage 4 chronic kidney disease, or unspecified chronic kidney disease; I48.0 Paroxysmal atrial fibrillation; I25.10 Atherosclerotic heart disease of native coronary artery without angina pectoris; N18.9 Chronic kidney disease, unspecified; E66.9 Obesity, unspecified; L97.529 Non-pressure chronic ulcer of other part of left foot with unspecified severity; L98.9 Disorder of the skin and subcutaneous tissue, unspecified; L89.156 Pressure-induced deep tissue damage of sacral region; L89.316 Pressure-induced deep tissue damage of right buttock
CPT/HCPCS: 31720; 36415; 71045-TC; 80048-TC; 80076-TC; 80170-TC; 81001; 82962-TC; 83605-TC; 83735-TC; 83880; 84100-TC; 84484-TC; 85025-TC; 85730-TC; 86850-TC; 87040-TC; 87081-TC; 87086-TC; 94003-TC; 94760-TC; 94799-TC; A4217; A4623; A6253; A7526; G0378; J0696; J1580; J1815; J1953; J7030; J7040; J7050; J7060; P9016-BL; U0003